=== PATIENT | male | born 1985 ===

== ENCOUNTER → 2022-03-07 | Outpatient (CLI) | payer BC | LOC: COL.RAD 13:32 | DX: M51.26 Other intervertebral disc displacement, lumbar region (principal) ==

== ENCOUNTER → 2022-04-11 | Outpatient (CLI) | payer BC ==
[~2022-04-11] VITALS: Ht 177.8 cm; Wt 129.3 kg
[2022-04-11 07:13] VITALS: BP 132/82; PULSE 47; TEMP 98
[2022-04-11 08:15] VITALS: BP 128/75; PULSE 60
== END ==
LOC: COL.RAD 06:49
DX: M51.26 Other intervertebral disc displacement, lumbar region (principal)
CPT/HCPCS: J3301